=== PATIENT | female | born 1990 | race Caucasian/White ===

== ENCOUNTER 2017-11-27 11:01 | Emergency (ER) | payer OTHER | END 2017-11-27 11:53 | disposition home or self-care (01) | LOC: E/R 11:01 | DX: J06.9 Acute upper respiratory infection, unspecified (principal) | CPT/HCPCS: 99284; Z7502 ==

== ENCOUNTER 2018-04-06 15:45 | Emergency (ER) | payer OTHER | END 2018-04-06 16:42 | disposition home or self-care (01) | LOC: FTE 15:45 | DX: H65.92 Unspecified nonsuppurative otitis media, left ear (principal); J03.90 Acute tonsillitis, unspecified; J45.909 Unspecified asthma, uncomplicated | CPT/HCPCS: 99284; Z7502 ==